=== PATIENT | female | born 1995 | race Caucasian/White ===

== ENCOUNTER 2016-11-16 10:02 | Emergency (ER) | payer SELFPAY ==
--- NOTE | 2016-11-16 12:28 | ED CLINICAL REPORT ---
Clinical Report - Physicians/Mid Levels [facility] [address] [place] [address] 11/16/2016 10:03 Patient: KAYCEE VOGEL Time Seen: 10:13. Arrived- By private vehicle. Historian- patient. HISTORY OF PRESENT ILLNESS Chief Complaint: HEADACHE. Is still present. This started several days ago. Onset during can't recall. It is described as similar to previous headaches. Located in the frontal region. No neck pain. At its maximum, severity described as moderate. When seen in the E.D., severity described as moderate. Modifying factors: relieved by nothing. Not worsened by anything. The patient has had nausea. No preceding symptoms, blurred vision, photophobia, numbness or weakness. No vomiting. (Pt states she is also 9 weeks , she thinks. She reports mild spotting several days ago, but none further. Pt states she has been told she has a "cyst" in her uterus. Pt reports low abdominal pain on the right side.). Similar symptoms previously: ( Pt states that with her last , she had pre-eclampsia, and the headache was similar.). Recent medical care: The patient was seen recently by a health care provider. ( Pt just moved, but saw her OB 3 weeks ago in [place]. She states she was told that if she developed a headache or abdominal pain, she should come get checked.). REVIEW OF SYSTEMS No fever, muscle aches, sinus pressure, ear pain or sore throat. No head injury, chest pain, difficulty breathing, cough or diarrhea. No pain with urination, skin rash, enlarged lymph nodes or back pain. The patient has had moderate abdominal pain (R pelvis). All systems otherwise negative, except as recorded above. PAST HISTORY Problems: Chronic kidney disease stage 1. Heart Murmur. Additional Surgeries: Kidney stent. Nephrostomy tube placement. Medications: PROzac Oral. Vitamins Oral. Allergies: Amoxicillin. Penicillin. Vicoden. SOCIAL HISTORY Never smoker. No alcohol use or drug use. ADDITIONAL NOTES The nursing notes have been reviewed. PHYSICAL EXAM Vital Signs: 11/16/2016 10:21 BP: 110/54. HR: 110. RR: 18. O2 saturation: 100%. Temp: 98 F. Have been reviewed. Appearance: Alert. No acute distress. Eyes: Pupils equal, round and reactive to light. Eyes normal inspection. ENT: Nose normal. Neck: Normal inspection. CVS: Normal heart rate and rhythm. Heart sounds normal. Pulses normal. Respiratory: No respiratory distress. Breath sounds normal. Abdomen: Soft. Mild tenderness (L pelvis). No guarding or rebound tenderness. Back: Normal inspection. No CVA tenderness. Skin: Skin warm and dry. Normal skin color. No rash. Normal skin turgor. Extremities: Extremities exhibit normal ROM. No lower extremity edema. Neuro: Oriented X 3. Alert. Mood/affect normal. Speech normal. Cranial nerves normal (as tested). No cerebellar findings. No motor deficit. No sensory deficit. LABS, X-RAYS, AND EKG Pelvic Sonogram: A single gestation, viable intrauterine (9 week size) is present. Cardiac activity noted. Adnexa normal. No free fluid. No ovarian cyst. Study type: bedside transvaginal and obstetrical evaluation. The study was independently viewed by me, interpreted by the radiologist and contemporaneously by me and discussed with the radiologist. Prior studies were not available for comparison. Laboratory Tests: UA-Culture if indicated: (LESLEY: 11/16/2016 10:50) ( MsgRcvd 11/16/2016 11:21) Final results Test Result Flag Units (Reference) URINE COLOR YELLOW URINE APPEARANCE CLOUDY URINE GLUCOSE NEGATIVE (NEGATIVE) URINE BILIRUBIN NEGATIVE (NEGATIVE) URINE KETONE NEGATIVE (NEGATIVE) URINE SPECIFIC GRAVITY 1.020 (1.010-1.030) URINE PH 7.5 (5.0-8.0) URINE PROTEIN NEGATIVE (NEGATIVE) URINE UROBILINOGEN 0.2 EU/dL (0.2-1.0) URINE NITRITE NEGATIVE (NEGATIVE) URINE BLOOD NEGATIVE (NEGATIVE) URINE LEUK ESTERASE NEGATIVE (NEGATIVE) URINE RBC NONE SEEN rbc/hpf (0-1) URINE WBC 3-5 wbc/hpf (0-1) URINE EPITHELIAL CELLS 5-10 EPI/hpf (0-5) URINE BACTERIA TRACE (<1+) (NONE SEEN) URINE COMMENT CULT NOT INDICATED 2+ MUCOUSURINE CULTURES ARE SET-UP BASED ON THE FOLLOWING CRITERIA:POSITIVE NITRITEPOSITIVE LEUKOCYTE ESTERASEGREATER THAN 10 WHITE BLOOD CELLSMODERATE (2+) OR GREATER BACTERIA Urine: (LESLEY: 11/16/2016 10:50) ( MsgRcvd 11/16/2016 10:57) Final results Test Result Flag Units (Reference) URINE POSITIVE Rapid Influenza Screen: (LESLEY: 11/16/2016 10:30) ( MsgRcvd 11/16/2016 11:09) Final results SPECIMEN DESCRIPTION: SWAB Test Result Flag Units (Reference) RAPID INFLUENZA SCREEN DATE: 11/16/16 INFLUENZA A: NEGATIVE SCREEN FOR INFLUENZA A INFLUENZA B: NEGATIVE SCREEN FOR INFLUENZA B . Pulse Oximetry: 11/16/2016 10:21 O2 saturation: 100%. (FIO2 - room air). Interpretation: normal. PROGRESS AND PROCEDURES Course of Care: PT was given a dose of Tylenol for her headache, then a single Percocet, with improvement. She was worked up with a UA and an US, and both were unremarkable, other than a viable IUP. No emergent condition identified. Patient counseled in person regarding the patient's stable condition, test results, diagnosis and need for follow-up. Concerns were addressed. Old medical records reviewed. Disposition: Discharged. Condition: stable and improved. CLINICAL IMPRESSION Acute tension headache. First trimester ; positive test in emergency department. Ultrasound demonstrated an intrauterine . INSTRUCTIONS (Your ultrasound looks good--your baby is in the uterus, has a heartbeat, and is 9 weeks, 2 days size. No cyst is seen. Your urinalysis is negative. It is unclear exactly what is causing your pain, but no emergent cause has been found. Your blood pressure is normal, and there is no sign of pre-eclampsia at this point. You should establish care with an OB as soon as possible, and have serial blood pressures checked.). Warnings: Further evaluation is necessary. It is very important to follow up with a physician. GENERAL WARNINGS: Return or contact your physician immediately if your condition worsens or changes unexpectedly, if not improving as expected, or if other problems arise. Your Current Medications: CONTINUE TAKING THE FOLLOWING MEDICATIONS: Vitamins Oral. PROzac Oral. Understanding of the discharge instructions verbalized by patient. Follow-up with: Nirmal Huerta MD, Obstetrics/Gynecology, , [facility], [address] [place] [address] Follow up. Call for the next available appointment. Reason for referral: Establish care for . (Electronically signed by Erica Perez MD 11/22/2016 1:57)
--- NOTE | 2016-11-16 12:28 | ED ORDER SUMMARY ---
..... Patient: KAYCEE VOGEL OrderSheet [facility] VisitID: [id number] [place] [address] 20y, F Registration Date/Time: 11/16/2016 ORDER SHEET Weight: 50.8 kg (stated) Allergies: Amoxicillin, Penicillin, Vicoden GENERAL ORDERS: UA-Culture if indicated Urgent (10:13 11/16/2016 Milind MALLORY) (Ack 10:54 LTapper) (12:15 LWhalen R.N.) Urine Urgent (10:13 11/16/2016 Milind MALLORY) (Ack 10:54 LTapper) (12:15 LWhalen R.N.) Rapid Influenza Screen (Nasal Pharyngeal) (swab) Urgent (10:39 11/16/2016 Milind MALLORY) (Ack 10:54 LTapper) (12:15 LWhalen R.N.) US Pelvic Complete w Transvag Urgent (10:50 11/16/2016 Milind MALLORY) (Ack 10:54 LTapper) (12:04 LTapper) (Cancelled: Change in patient [id number] LTapper) Wet Prep (Vaginal) (swab) Urgent (12:23 11/16/2016 Milind MALLORY) (16:32 LTapper) GC/Chlamydia (Cervix) (swab) Urgent (12:23 11/16/2016 Milind MALLORY) (16:32 LTapper) US OB 1st Trimester w Transvag (2015) Urgent (16:28 11/16/2016 LTapper written order Milind MALLORY) (16:32 LTapper) MEDICATION ORDERS: Tylenol PO 650 mg (NOW) (10:52 11/16/2016 Milind MALLORY) (10:56 LWhalen R.N.) Oxycodone-APAP PO 5/325 mg (NOW) (12:15 11/16/2016 LWhalen R.N. verbal order read back to Milind MALLORY) (12:15 LWhalen R.N.) IV FLUIDS: ORDER SHEET NOTES: [Electronically signed by Yvrose Matson R.N. (11:22 11/20/2016)] [Electronically signed by Erica Perez MD (01:57 11/22/2016)] [Electronically locked/signed by Yvrose Matson R.N. (11:22 11/20/2016)]
--- NOTE | 2016-11-16 12:28 | ED NURSING NOTES ---
Clinical Report - Nurses [facility] [address] [place] [address] 11/16/2016 10:03 Patient: KAYCEE VOGEL TRIAGE Triage time 10:Nov 16 2016. Acuity: LEVEL 3. Chief Complaint: ABDOMINAL PAIN. AICHA COMA SCORE: [place] Coma Scale: 15- eyes open spontaneously (4); best verbal response- oriented x 4 (5); best motor response- obeys commands (6). --10:28 Ayesha Green R.N. 10:21 11/16/16. BP: 110/54. HR: 110. RR: 18. O2 saturation: 100%. Temp: 98 F. Pain level now 6/10. --10:28 Ayesha Green R.N. Weight: 50.8 kg stated. Height/Length: 62 inches Per Patient. BMI: 20.5. --10:27 Ayesha Green R.N. Medications Vitamins Oral. --10:25 Ayesha Green R.N. PROzac Oral. --10:25 Ayesha Green R.N. Allergies Amoxicillin. --10:24 Ayesha Green R.N. Penicillin. --10:24 Ayesha Green R.N. Vicoden. --10:24 Ayesha Green R.N. History Arrived by private vehicle. Historian: patient. Accompanied by family. ( Two weeks has had abdominal pain and cramping feeling. Was seen in ER in [place] and was told she has a cyst and that her may not be viable. Was told to go to ER because of current headache r/t past history of PIH.). She has had nausea and abdominal pain. The pain is described as located in the lower abdomen. No vomiting, diarrhea, constipation or fever. PAST MEDICAL HX: No history of diabetes mellitus. No history of peptic ulcer disease or gallstones. Immunizations: up-to-date. Last normal menstrual period- Sep 04 2016. 4. Para 2. Abortions 1. Sexual history - sexually active. No contraception. SOCIAL HX: Smoker- current status unknown. No alcohol use or drug use. She has had contact with a sick family member. No infectious disease exposure. SELF HARM ASSESSMENT: A self harm assessment was performed. The patient answered "no" to the question "Have you recently felt down, depressed, or hopeless?" and "Do you have thoughts of harming or killing yourself?". FALL RISK ASSESSMENT: Fall risk assessment completed. No fall risk identified. NUTRITIONAL RISK ASSESSMENT: The nutritional risk assessment revealed no deficiencies. FUNCTIONAL ASSESSMENT: Functional assessment: no impairments noted. LEARNING NEEDS ASSESSMENT: The learning needs assessment revealed no barriers. ABUSE ASSESSMENT: Abuse assessment: (yes). SKIN INTEGRITY ASSESSMENT: Skin integrity risk assessment completed. No skin integrity risk identified. --10:28 Ayesha Green R.N. PROBLEMS: Chronic kidney disease stage 1. Flank Pain. Heart Murmur. --10:25 Ayesha Green R.N. ADDITIONAL SURGERIES: Kidney stent. Nephrostomy tube placement. --10:25 Ayesha Green R.N. Interventions ID and allergy band on patient. --10:28 Ayesha Green R.N. PHYSICAL ASSESSMENT Ambulatory to room. GENERAL / NEURO / PSYCH: Alert. Oriented X 4. Appears in no acute distress. HEENT: Mucous membranes are pink. RESPIRATORY: Respirations not labored. Breath sounds within normal limits. CVS: Normal sinus rhythm noted. Capillary refill less than 2 seconds. GI / : Abdomen soft. Abdominal tenderness in the lower abdomen. Bowel sounds within normal limits. Normal genitalia. SKIN: Skin is warm and dry. --10:29 Ayesha Green R.N. NURSING PROGRESS NOTES The initial plan of care for this patient includes an assessment with efforts to address the patient's anxiety; appropriate ambient lighting. Pulse oximeter and NIBP monitor placed on patient. Reassurance given. Call light placed in reach. Side rails up x 1. Bed placed in lowest position. Brakes of bed on. --10:29 Ayesha Green R.N. 10:56 11/16/2016 Tylenol (Acetaminophen) PO Tablets 650 mg given. Allergies verified and confirmed 5 rights. --10:56 Ayesha Green R.N. Patient ID band checked for patient name and birthdate: patient confirmed. Instructions provided to collect clean catch urine and patient verbalized understanding. Clean catch urine collected with return of edis-colored urine; sample sent to lab for urinalysis and culture. Specimen labeled in the presence of the patient. --10:57 Ayesha Green R.N. ( pelvic set up complete). --10:57 Ayesha Green R.N. 12:15 11/16/2016 Oxycodone-APAP (Oxycodone-Acetaminophen) PO 5/325 mg Tablets 1 tab given. Allergies verified, confirmed 5 rights and sedative warning given to the patient's camp maintenance supervisor. --12:15 Ayesha Green R.N. DISPOSITION / DISCHARGE Departure time: 12:39 Nov 16 2016. Condition at departure: improved. No learning barriers present. Discharge instructions provided and reviewed with the patient. Reviewed warnings. Reviewed medication(s). Treatments reviewed. Reviewed referrals. Patient verbalized understanding. Written instructions provided in Panamanian. The patient was discharged home and accompanied by camp maintenance supervisor. She left the Emergency Department ambulatory and via private vehicle. Lacing Cutter driving. --12:39 Ayesha Green R.N. 12:38 11/16/16. BP: 95/71. HR: 105. RR: 18. O2 saturation: 100%. Temp: 98.2 F. Pain level now 10. --12:39 Ayesha Green R.N. Locked/Released at 11/20/2016 11:22 by Yvrose Matson R.N.
--- NOTE | 2016-11-16 12:28 | ED ORDER SUMMARY ---
..... Patient: KAYCEE VOGEL OrderSheet [facility] VisitID: [id number] [place] [address] 20y, F Registration Date/Time: 11/16/2016 ORDER SHEET Weight: 50.8 kg (stated) Allergies: Amoxicillin, Penicillin, Vicoden GENERAL ORDERS: UA-Culture if indicated Urgent (10:13 11/16/2016 Milind MALLORY) (Ack 10:54 LTapper) (12:15 LWhalen R.N.) Urine Urgent (10:13 11/16/2016 Milind MALLORY) (Ack 10:54 LTapper) (12:15 LWhalen R.N.) Rapid Influenza Screen (Nasal Pharyngeal) (swab) Urgent (10:39 11/16/2016 Milind MALLORY) (Ack 10:54 LTapper) (12:15 LWhalen R.N.) US Pelvic Complete w Transvag Urgent (10:50 11/16/2016 Milind MALLORY) (Ack 10:54 LTapper) (12:04 LTapper) (Cancelled: Change in patient [id number] LTapper) Wet Prep (Vaginal) (swab) Urgent (12:23 11/16/2016 Milind MALLORY) (16:32 LTapper) GC/Chlamydia (Cervix) (swab) Urgent (12:23 11/16/2016 Milind MALLORY) (16:32 LTapper) US OB 1st Trimester w Transvag (2015) Urgent (16:28 11/16/2016 LTapper written order Milind MALLORY) (16:32 LTapper) MEDICATION ORDERS: Tylenol PO 650 mg (NOW) (10:52 11/16/2016 Milind MALLORY) (10:56 LWhalen R.N.) Oxycodone-APAP PO 5/325 mg (NOW) (12:15 11/16/2016 LWhalen R.N. verbal order read back to Milind MALLORY) (12:15 LWhalen R.N.) IV FLUIDS: ORDER SHEET NOTES: [Electronically signed by Yvrose Matson R.N. (11:22 11/20/2016)] [Electronically signed by Erica Perez MD (01:57 11/22/2016)] [Electronically locked/signed by Yvrose Matson R.N. (11:22 11/20/2016)]
--- NOTE | 2016-11-16 12:28 | ED NURSING NOTES ---
Clinical Report - Nurses [facility] [address] [place] [address] 11/16/2016 10:03 Patient: KAYCEE VOGEL TRIAGE Triage time 10:Nov 16 2016. Acuity: LEVEL 3. Chief Complaint: ABDOMINAL PAIN. AICHA COMA SCORE: [place] Coma Scale: 15- eyes open spontaneously (4); best verbal response- oriented x 4 (5); best motor response- obeys commands (6). --10:28 Ayehsa Green R.N. 10:21 11/16/16. BP: 110/54. HR: 110. RR: 18. O2 saturation: 100%. Temp: 98 F. Pain level now 6/10. --10:28 Ayesha Green R.N. Weight: 50.8 kg stated. Height/Length: 62 inches Per Patient. BMI: 20.5. --10:27 Ayesha Green R.N. Medications Vitamins Oral. --10:25 Ayesha Green R.N. PROzac Oral. --10:25 Ayesha Green R.N. Allergies Amoxicillin. --10:24 Ayesha Green R.N. Penicillin. --10:24 Ayesha Green R.N. Vicoden. --10:24 Ayesha Green R.N. History Arrived by private vehicle. Historian: patient. Accompanied by family. ( Two weeks has had abdominal pain and cramping feeling. Was seen in ER in [place] and was told she has a cyst and that her may not be viable. Was told to go to ER because of current headache r/t past history of PIH.). She has had nausea and abdominal pain. The pain is described as located in the lower abdomen. No vomiting, diarrhea, constipation or fever. PAST MEDICAL HX: No history of diabetes mellitus. No history of peptic ulcer disease or gallstones. Immunizations: up-to-date. Last normal menstrual period- Sep 04 2016. 4. Para 2. Abortions 1. Sexual history - sexually active. No contraception. SOCIAL HX: Smoker- current status unknown. No alcohol use or drug use. She has had contact with a sick family member. No infectious disease exposure. SELF HARM ASSESSMENT: A self harm assessment was performed. The patient answered "no" to the question "Have you recently felt down, depressed, or hopeless?" and "Do you have thoughts of harming or killing yourself?". FALL RISK ASSESSMENT: Fall risk assessment completed. No fall risk identified. NUTRITIONAL RISK ASSESSMENT: The nutritional risk assessment revealed no deficiencies. FUNCTIONAL ASSESSMENT: Functional assessment: no impairments noted. LEARNING NEEDS ASSESSMENT: The learning needs assessment revealed no barriers. ABUSE ASSESSMENT: Abuse assessment: (yes). SKIN INTEGRITY ASSESSMENT: Skin integrity risk assessment completed. No skin integrity risk identified. --10:28 Ayesha Green R.N. PROBLEMS: Chronic kidney disease stage 1. Flank Pain. Heart Murmur. --10:25 Ayesha Green R.N. ADDITIONAL SURGERIES: Kidney stent. Nephrostomy tube placement. --10:25 Ayesha Green R.N. Interventions ID and allergy band on patient. --10:28 Ayesha Green R.N. PHYSICAL ASSESSMENT Ambulatory to room. GENERAL / NEURO / PSYCH: Alert. Oriented X 4. Appears in no acute distress. HEENT: Mucous membranes are pink. RESPIRATORY: Respirations not labored. Breath sounds within normal limits. CVS: Normal sinus rhythm noted. Capillary refill less than 2 seconds. GI / : Abdomen soft. Abdominal tenderness in the lower abdomen. Bowel sounds within normal limits. Normal genitalia. SKIN: Skin is warm and dry. --10:29 Ayesha Green R.N. NURSING PROGRESS NOTES The initial plan of care for this patient includes an assessment with efforts to address the patient's anxiety; appropriate ambient lighting. Pulse oximeter and NIBP monitor placed on patient. Reassurance given. Call light placed in reach. Side rails up x 1. Bed placed in lowest position. Brakes of bed on. --10:29 Ayesha Green R.N. 10:56 11/16/2016 Tylenol (Acetaminophen) PO Tablets 650 mg given. Allergies verified and confirmed 5 rights. --10:56 Ayesha Green R.N. Patient ID band checked for patient name and birthdate: patient confirmed. Instructions provided to collect clean catch urine and patient verbalized understanding. Clean catch urine collected with return of edis-colored urine; sample sent to lab for urinalysis and culture. Specimen labeled in the presence of the patient. --10:57 Ayesha Green R.N. ( pelvic set up complete). --10:57 Ayesha Green R.N. 12:15 11/16/2016 Oxycodone-APAP (Oxycodone-Acetaminophen) PO 5/325 mg Tablets 1 tab given. Allergies verified, confirmed 5 rights and sedative warning given to the patient's mobile ui designer. --12:15 Ayesha Green R.N. DISPOSITION / DISCHARGE Departure time: 12:39 Nov 16 2016. Condition at departure: improved. No learning barriers present. Discharge instructions provided and reviewed with the patient. Reviewed warnings. Reviewed medication(s). Treatments reviewed. Reviewed referrals. Patient verbalized understanding. Written instructions provided in Venezuelan. The patient was discharged home and accompanied by mobile ui designer. She left the Emergency Department ambulatory and via private vehicle. Roving Department Supervisor driving. --12:39 Ayesha Green R.N. 12:38 11/16/16. BP: 95/71. HR: 105. RR: 18. O2 saturation: 100%. Temp: 98.2 F. Pain level now 10. --12:39 Ayesha Green R.N. Locked/Released at 11/20/2016 11:22 by Yvrose Matson R.N.
--- NOTE | 2016-11-16 17:42 | DIAGNOSTIC IMAGING REPORT ---
PROCEDURE: US OB 1ST TRIMESTER W/TRANSVAG INDICATION: Pelvic pain. TECHNIQUE: [place] scale, color, and spectral Doppler transabdominal and endovaginal sonographic images of the first trimester gravid uterus were obtained. COMPARISON: None. FINDINGS: TRANSABDOMINAL SCANS: Uterus is not visualized as bladder is incompletely filled. Maternal kidneys are normal (right 11.8 cm, left 11.2 cm). TRANSVAGINAL SCANS: Retroverted uterus (normal variant). There is an early viable intrauterine with cardiac activity (180). [place]-rump length 2.5 cm (9.3 weeks). Placenta is circumferential. Findings suggest a 1.9 cm left corpus luteum cyst. IMPRESSION: 1. Retroverted uterus (normal variant). 2. Early viable intrauterine at 9.3 weeks menstrual age (plus or minus 0.7 weeks). TO is 06/19/2017.
--- NOTE | 2016-11-16 17:42 | DIAGNOSTIC IMAGING REPORT ---
PROCEDURE: US OB 1ST TRIMESTER W/TRANSVAG INDICATION: Pelvic pain. TECHNIQUE: [place] scale, color, and spectral Doppler transabdominal and endovaginal sonographic images of the first trimester gravid uterus were obtained. COMPARISON: None. FINDINGS: TRANSABDOMINAL SCANS: Uterus is not visualized as bladder is incompletely filled. Maternal kidneys are normal (right 11.8 cm, left 11.2 cm). TRANSVAGINAL SCANS: Retroverted uterus (normal variant). There is an early viable intrauterine with cardiac activity (180). [place]-rump length 2.5 cm (9.3 weeks). Placenta is circumferential. Findings suggest a 1.9 cm left corpus luteum cyst. IMPRESSION: 1. Retroverted uterus (normal variant). 2. Early viable intrauterine at 9.3 weeks menstrual age (plus or minus 0.7 weeks). TO is 06/19/2017.
--- NOTE | 2016-11-22 01:57 | ED DISCHARGE INSTRUCTIONS ---
Patient: KAYCEE VOGEL General Instructions [facility] VisitID: [id number] [place] [address] 20y, F Registration Date/Time: 11/16/2016 Acute tension headache. First trimester ; positive test in emergency department. Ultrasound demonstrated an intrauterine . INSTRUCTIONS (Your ultrasound looks good--your baby is in the uterus, has a heartbeat, and is 9 weeks, 2 days size. No cyst is seen. Your urinalysis is negative. It is unclear exactly what is causing your pain, but no emergent cause has been found. Your blood pressure is normal, and there is no sign of pre-eclampsia at this point. You should establish care with an OB as soon as possible, and have serial blood pressures checked.). Warnings: Further evaluation is necessary. It is very important to follow up with a physician. GENERAL WARNINGS: Return or contact your physician immediately if your condition worsens or changes unexpectedly, if not improving as expected, or if other problems arise. Your Current Medications: CONTINUE TAKING THE FOLLOWING MEDICATIONS: Vitamins Oral. PROzac Oral. Understanding of the discharge instructions verbalized by patient. Follow-up with: Nirmal Huerta MD, Obstetrics/Gynecology, , [facility], [address] [place] [address] Follow up. Call for the next available appointment. Reason for referral: Establish care for . ADDITIONAL INFORMATION Headache [Unspecified] The cause of your headache today is not clear, but it does not appear to be the sign of any serious illness. Under stress, some people tense the muscles of their shoulder, neck and scalp without knowing it. If this condition lasts long enough, a TENSION HEADACHE can occur. A MIGRAINE HEADACHE is caused by changes in blood flow to the brain. A migraine attack may be triggered by emotional stress, hormone changes during the menstrual cycle, oral contraceptives, alcohol use, certain foods containing tyramine, eye strain, weather changes, missing meals, lack of sleep or oversleeping. Other causes of headache include a viral illness with high fever, head injury with concussion, sinus, ear or throat infection, dental pain and TMJ (jaw joint) pain. More serious but less common causes of headache include stroke, brain hemorrhage, brain tumor, meningitis and encephalitis. Home Care: If you were given pain medicine for this headache, do not drive yourself home. Arrange for a ride, instead. When you get home, try to sleep. You should feel much better when you wake up. Apply heat to the back of your neck to relieve neck muscle spasm. Migraine headaches may respond best to an ice pack on the forehead or at the base of the skull. If you are having nausea or vomiting, follow a light diet until your headache is relieved. If you have a migraine type headache, use sunglasses when in the daylight or around bright indoor lighting until symptoms improve. Bright glaring light can worsen this kind of headache. Follow Up with your doctor if the headache is not better within the next 24 hours. If you have frequent headaches you should discuss a treatment plan with your primary care doctor. By being aware of the earliest signs of headache, and starting treatment right away, you may be able to stop the pain yourself. Get Prompt Medical Attention if any of the following occur: Worsening of your head pain or no improvement within 24 hours Repeated vomiting (unable to keep liquids down) Fever of 100.4F (38C) or higher, or as directed by your healthcare provider Stiff neck Extreme drowsiness, confusion or fainting Dizziness, vertigo (dizziness with spinning sensation) Weakness of an arm or leg or one side of the face Difficulty with speech or vision Your exam today shows that you are . During , it is normal to develop tender swollen breasts, frequent urination and mild vaginal discharge. During the first three months, nausea is common. Guidelines For A Healthy : To ensure that your baby is born healthy there are certain things that you can do: When you feel tired, you should REST. This is especially true in the later months of . Your body needs more FLUIDS than you may be used to: You should drink 8-10 glasses of juice, milk or water. Eat well-balanced MEALS at regular intervals to supply your body with enough protein. You can expect a total weight gain of about 30 pounds during the . Do not try to diet or lose weight while you are . Because of the extra nutritional needs during , take one VITAMIN daily. Do not take any other MEDICINE during your (prescribed or [id number]) unless your doctor specifically recommends this. Many drugs can have harmful effects on the growing baby. If NAUSEA or VOMITING become a problem, avoid greasy and fried foods. Eat several smaller meals throughout the day rather than three large meals. If you SMOKE, you must stop. The nicotine you breathe in goes right to the baby. Stay away from ALCOHOL, even in moderate amounts. Daily drinking will harm your baby and can cause permanent brain damage. RECREATIONAL DRUGS are harmful, especially cocaine, crack, and heroin. Marijuana should also be avoided. If you were using recreational drugs or prescribed medicine when you found out that you were , talk to your doctor about possible effects on the fetus. Follow Up: Call to arrange for care. This can be provided by your family doctor, an jockey agent ( specialist) or a primary care clinic. Get Prompt Medical Attention if any of the following occur: Vaginal bleeding Moderate or severe abdominal or back pain Excessive vomiting, unable to keep any fluids down for six hours Burning with urination Headache, dizziness or rapid weight gain You have been given the following additional information: Headache, Unspecified , New Dx (Electronically signed by Erica Perez MD 11/22/2016 1:57)
--- NOTE | 2016-11-22 01:57 | ED MAR SUMMARY ---
..... Medication Administration Record Merged With [facility] [address] [place] [address] Patient: KAYCEE VOGEL Visit ID: [id number] 20y, F Weight: 50.8 kg Height/Length: 62 in BMI: 20.5 ALLERGIES: Vicoden, Penicillin, Amoxicillin Given 10:56 11/16/2016 Ayesha Green RChitraNChitra Medication Administered: TYLENOL [PO] (ACETAMINOPHEN), Dose: 650 mg Tablets PO. Medication Ordered: Tylenol PO 650 mg (NOW). Given 12:15 11/16/2016 Ayesha Green, RChitraN. Medication Administered: OXYCODONE-APAP [PO] (OXYCODONE-ACETAMINOPHEN), Dose: 1 tab 5/325 mg Tablets PO. Medication Ordered: Oxycodone-APAP PO 5/325 mg (NOW).
--- NOTE | 2016-11-22 01:57 | ED MAR SUMMARY ---
..... Medication Administration Record [facility] [address] [place] [address] Patient: KAYCEE VOGEL Visit ID: [id number] 20y, F Weight: 50.8 kg Height/Length: 62 in BMI: 20.5 ALLERGIES: Vicoden, Penicillin, Amoxicillin Given 10:56 11/16/2016 Ayesha Green RChitraNChitra Medication Administered: TYLENOL [PO] (ACETAMINOPHEN), Dose: 650 mg Tablets PO. Medication Ordered: Tylenol PO 650 mg (NOW). Given 12:15 11/16/2016 Ayesha Green, RChitraN. Medication Administered: OXYCODONE-APAP [PO] (OXYCODONE-ACETAMINOPHEN), Dose: 1 tab 5/325 mg Tablets PO. Medication Ordered: Oxycodone-APAP PO 5/325 mg (NOW).
--- NOTE | 2016-11-22 01:57 | ED DISCHARGE INSTRUCTIONS ---
Patient: KAYCEE VOGEL General Instructions [facility] VisitID: [id number] [place] [address] 20y, F Registration Date/Time: 11/16/2016 Acute tension headache. First trimester ; positive test in emergency department. Ultrasound demonstrated an intrauterine . INSTRUCTIONS (Your ultrasound looks good--your baby is in the uterus, has a heartbeat, and is 9 weeks, 2 days size. No cyst is seen. Your urinalysis is negative. It is unclear exactly what is causing your pain, but no emergent cause has been found. Your blood pressure is normal, and there is no sign of pre-eclampsia at this point. You should establish care with an OB as soon as possible, and have serial blood pressures checked.). Warnings: Further evaluation is necessary. It is very important to follow up with a physician. GENERAL WARNINGS: Return or contact your physician immediately if your condition worsens or changes unexpectedly, if not improving as expected, or if other problems arise. Your Current Medications: CONTINUE TAKING THE FOLLOWING MEDICATIONS: Vitamins Oral. PROzac Oral. Understanding of the discharge instructions verbalized by patient. Follow-up with: Nirmal Huerta MD, Obstetrics/Gynecology, , [facility], [address] [place] [address] Follow up. Call for the next available appointment. Reason for referral: Establish care for . ADDITIONAL INFORMATION Headache [Unspecified] The cause of your headache today is not clear, but it does not appear to be the sign of any serious illness. Under stress, some people tense the muscles of their shoulder, neck and scalp without knowing it. If this condition lasts long enough, a TENSION HEADACHE can occur. A MIGRAINE HEADACHE is caused by changes in blood flow to the brain. A migraine attack may be triggered by emotional stress, hormone changes during the menstrual cycle, oral contraceptives, alcohol use, certain foods containing tyramine, eye strain, weather changes, missing meals, lack of sleep or oversleeping. Other causes of headache include a viral illness with high fever, head injury with concussion, sinus, ear or throat infection, dental pain and TMJ (jaw joint) pain. More serious but less common causes of headache include stroke, brain hemorrhage, brain tumor, meningitis and encephalitis. Home Care: If you were given pain medicine for this headache, do not drive yourself home. Arrange for a ride, instead. When you get home, try to sleep. You should feel much better when you wake up. Apply heat to the back of your neck to relieve neck muscle spasm. Migraine headaches may respond best to an ice pack on the forehead or at the base of the skull. If you are having nausea or vomiting, follow a light diet until your headache is relieved. If you have a migraine type headache, use sunglasses when in the daylight or around bright indoor lighting until symptoms improve. Bright glaring light can worsen this kind of headache. Follow Up with your doctor if the headache is not better within the next 24 hours. If you have frequent headaches you should discuss a treatment plan with your primary care doctor. By being aware of the earliest signs of headache, and starting treatment right away, you may be able to stop the pain yourself. Get Prompt Medical Attention if any of the following occur: Worsening of your head pain or no improvement within 24 hours Repeated vomiting (unable to keep liquids down) Fever of 100.4F (38C) or higher, or as directed by your healthcare provider Stiff neck Extreme drowsiness, confusion or fainting Dizziness, vertigo (dizziness with spinning sensation) Weakness of an arm or leg or one side of the face Difficulty with speech or vision Your exam today shows that you are . During , it is normal to develop tender swollen breasts, frequent urination and mild vaginal discharge. During the first three months, nausea is common. Guidelines For A Healthy : To ensure that your baby is born healthy there are certain things that you can do: When you feel tired, you should REST. This is especially true in the later months of . Your body needs more FLUIDS than you may be used to: You should drink 8-10 glasses of juice, milk or water. Eat well-balanced MEALS at regular intervals to supply your body with enough protein. You can expect a total weight gain of about 30 pounds during the . Do not try to diet or lose weight while you are . Because of the extra nutritional needs during , take one VITAMIN daily. Do not take any other MEDICINE during your (prescribed or [id number]) unless your doctor specifically recommends this. Many drugs can have harmful effects on the growing baby. If NAUSEA or VOMITING become a problem, avoid greasy and fried foods. Eat several smaller meals throughout the day rather than three large meals. If you SMOKE, you must stop. The nicotine you breathe in goes right to the baby. Stay away from ALCOHOL, even in moderate amounts. Daily drinking will harm your baby and can cause permanent brain damage. RECREATIONAL DRUGS are harmful, especially cocaine, crack, and heroin. Marijuana should also be avoided. If you were using recreational drugs or prescribed medicine when you found out that you were , talk to your doctor about possible effects on the fetus. Follow Up: Call to arrange for care. This can be provided by your family doctor, an manager sterile ( specialist) or a primary care clinic. Get Prompt Medical Attention if any of the following occur: Vaginal bleeding Moderate or severe abdominal or back pain Excessive vomiting, unable to keep any fluids down for six hours Burning with urination Headache, dizziness or rapid weight gain You have been given the following additional information: Headache, Unspecified , New Dx (Electronically signed by Erica Perez MD 11/22/2016 1:57)
--- NOTE | 2016-11-22 01:58 | ED MED RECONCILIATION SUMMARY ---
Patient: KAYCEE VOGEL Medication Reconciliation Report [facility] VisitID: [id number] [address] [place] [address] 20y, F Registration Date/Time: 11/16/2016 Weight: 50.8 kg Height/Length: 62 in. BMI: 20.5 ALLERGIES: Amoxicillin, Penicillin, Vicoden The patient's Home Medications are listed below: CONTINUE TAKING THE FOLLOWING MEDICATIONS: Vitamins Oral PROzac Oral The source(s) of the original Home Medication information: Not obtained. The following Medications were given to the patient in the Emergency Department: Tylenol [PO] PO 650 mg, administered: 11/16/2016 10:56:00 AM Oxycodone-APAP [PO] PO 1 tab, administered: 11/16/2016 12:15:00 PM The following Medications were prescribed to the patient: None.
--- NOTE | 2016-11-22 01:58 | ED MED RECONCILIATION SUMMARY ---
Patient: KAYCEE VOGEL Medication Reconciliation Report [facility] VisitID: [id number] [address] [place] [address] 20y, F Registration Date/Time: 11/16/2016 Weight: 50.8 kg Height/Length: 62 in. BMI: 20.5 ALLERGIES: Amoxicillin, Penicillin, Vicoden The patient's Home Medications are listed below: CONTINUE TAKING THE FOLLOWING MEDICATIONS: Vitamins Oral PROzac Oral The source(s) of the original Home Medication information: Not obtained. The following Medications were given to the patient in the Emergency Department: Tylenol [PO] PO 650 mg, administered: 11/16/2016 10:56:00 AM Oxycodone-APAP [PO] PO 1 tab, administered: 11/16/2016 12:15:00 PM The following Medications were prescribed to the patient: None.
== END 2016-11-16 12:50 | disposition home or self-care (01) ==
LOC: ED SRH 10:02
DX: O99.89 Other specified diseases and conditions complicating pregnancy, childbirth and the puerperium (principal); G44.209 Tension-type headache, unspecified, not intractable; N18.1 Chronic kidney disease, stage 1; Z3A.09 9 weeks gestation of pregnancy; Z32.01 Encounter for pregnancy test, result positive
CPT/HCPCS: 90004; 90195; 91227; 91228; 91400; 93070